=== PATIENT | male | born 1975 ===

== ENCOUNTER 2018-06-14 22:33 | Emergency (ER) | payer SELFPAY ==
[2018-06-15 00:47] LABS: #Basophils 0.1 thou/uL (0.0-0.2); #Eosinphils 0.2 thou/uL (0.0-0.7); #Monocytes 0.8 thou/uL (0.11-0.59); #Neutrophils 4.7 thou/uL (1.40-6.50); %Basophils 1.2 % (0.0-1.0); %Eosinophils 2.6 % (0.0-10.0); %Lymphocytes 25.8 % (21.0-51.0); %Monocytes 10.7 % (0.0-10.0); %Neutrophils 59.7 % (42.0-75.0); Hemoglobin 16.2 g/dL (14.0-18.0); Mean Corpuscular HGB CONC 33.4 g/dL (32.0-36.0); Mean Corpuscular Hemoglobin 27.7 pg (27.0-31.0); Mean Platelet Volume 8.4 fL (7.4-10.4); Platelet Count 199 thou/uL (130-400); RBC Distribution Width 12.7 % (11.5-14.5); Red Blood Cell (RBC) Count 5.84 mill/uL (4.70-6.10); White Blood Cell (WBC) Count 7.9 thou/uL (4.8-10.8)
[2018-06-15 01:07] LABS: ALT (SGPT) 39 U/L (8-55); AST (SGOT) 34 U/L (5-34); Albumin 4.2 g/dL (3.5-5.0); Alkaline Phosphatase 70 U/L (40-150); Anion Gap 12 mmol/L (10-20); BUN (Urea Nitrogen) 14 mg/dL (8.9-20.6); Bilirubin, Total 0.6 mg/dL (0.2-1.2); Calc. Creatinine Clearance 0 mL/min (70-130); Calcium 9.4 mg/dL (7.8-10.44); Carbon Dioxide 30 mmol/L (22-29); Chloride 102 mmol/L (98-107); Estimated GFR-MDRD 53; Globulin 3.3 g/dL (2.4-3.5); Glucose 113 mg/dL (70-105); Potassium 3.7 mmol/L (3.5-5.1); Protein, Total 7.5 g/dL (6.0-8.3); Sodium 140 mmol/L (136-145)
[2018-06-15] MEDS ORDERED: Bacitracin Zinc 1 Packet ONE (01:53)
--- NOTE | 2018-06-15 07:41 | RAD ---
THREE VIEWS OF THE RIGHT ANKLE: INDICATION: Wound. COMPARISON: None. FINDINGS: There is a healed fracture deformity involving the distal tibia and fibula with advanced osteoporosis involving the tibiotalar joint. There is moderate osteoarthrosis involving the subtalar joint. No acute fracture is evident. There is prominent soft tissue swelling of the distal foreleg, ankle, and foot. IMPRESSION: 1. 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 2. Soft tissue swelling. POS: BH
--- NOTE | 2018-06-15 08:16 | RAD ---
RIGHT FORELEG 2 VIEWS: INDICATION: Wound. COMPARISON: None. FINDINGS: There is healed deformity involving the distal foreleg. There is advanced osteoarthrosis of the tibi otalar joint. There is soft tissue swelling over the distal foreleg. There are numerous vascular cl ips within the posterior medial soft tissues of the distal foreleg likely related to a flap. Small i ntraarticular bodies are seen within the region of Hoffa's fat pad. IMPRESSION: 1. No acute osseous abnormality. 2. Postsurgical and posttraumatic change of the distal right foreleg. 3. Advanced tibiotalar osteoarthrosis. 4. Intraarticular bodies within the right knee. POS: BH
== END 2018-06-15 02:08 | disposition home or self-care (01) ==
LOC: ERS 22:33
DX: S80.921A Unspecified superficial injury of right lower leg, initial encounter (principal); X58.XXXA Exposure to other specified factors, initial encounter
CPT/HCPCS: 36415; 36416; 80053; 85025

== ENCOUNTER 2018-06-18 13:32 | Outpatient (CLI) | payer SELFPAY ==
[2018-06-18] MEDS ORDERED: Sodium Chloride 0.9% 15 ML NEB ONE (16:21)
[2018-06-18] MEDS ORDERED: Lidocaine 2% 11 ML SYR ONE (16:21)
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
== END 2018-06-18 13:33 | disposition home or self-care (01) ==
LOC: WCC 13:32
PROVIDERS: ATTEND Family Medicine
DX: L97.319 Non-pressure chronic ulcer of right ankle with unspecified severity (principal)
CPT/HCPCS: 11042; 99203; A4218; G0463